=== PATIENT | female | born 1930 | race Caucasian/White ===

== ENCOUNTER 2019-11-24 22:30 | Emergency (ER) | payer MEDICARE, BC ==
--- NOTE | 2019-11-24 23:30 | EDM.PDOC ---
ED HPI GENERAL MEDICAL PROBLEM - General Chief Complaint: ENT Problem Stated Complaint: FELL Time Seen by Provider: 11/24/19 23:29 Source of Information: Reports: Patient History Limitations: Reports: No Limitations - History of Present Illness INITIAL COMMENTS - FREE TEXT/NARRATIVE: pt missed the first step and fell landing on her face several times. She did develop a heavy nose bleed. She has tenderness over the nose. She was not knocked out. She is not on blood thinners. Onset: Today, Sudden Duration: Hour(s): Location: Reports: Face Associated Symptoms: Reports: Other (pt landed on her knees but she does not have pain. ) forehead Pain Score (Numeric/FACES): 1 - Related Data Allergies Allergy/AdvReac Type Severity Reaction Status Date / Time ibuprofen Allergy Severe Swollen Verified 11/24/19 22:55 Tongue nitroglycerin Allergy Severe Hypotension Verified 11/24/19 22:55 amoxicillin Allergy Mild Rash Verified 11/24/19 22:55 walnut Allergy Swollen Verified 11/24/19 22:55 Tongue vasodilators Allergy Severe Hypotension Uncoded 11/24/19 22:55 Home Meds: Home Meds Albuterol [Ventolin HFA] 2 inh INH ASDIRECTED PRN 11/24/19 [History] Aspirin [Mitra Chewable] 81 mg PO BEDTIME 11/24/19 [History] Levothyroxine [Synthroid] 50 mcg PO DAILY 11/24/19 [History] Loratadine [Claritin] 10 mg PO DAILY PRN 11/24/19 [History] Potassium Chloride 10 meq PO DAILY 11/24/19 [History] Propylene Glycol/PEG 400/Pf [Systane 0.3-0.4% Eye Drop] 1 drop EYEBOTH TID 11/24/19 [History] hydroCHLOROthiazide [Hydrochlorothiazide] 25 mg PO DAILY 11/24/19 [History] Past Medical History HEENT History: Reports: Cataract, Impaired Vision, Other (See Below) Other HEENT History: glasses Respiratory History: Reports: Asthma [employer] History: Reports: Musculoskeletal History: Reports: Arthritis, Other (See Below) Other Musculoskeletal History: broken nose Neurological History: Reports: Head Trauma Endocrine/Metabolic History: Reports: Hypothyroidism Oncologic (Cancer) History: Reports: Basal Cell Carcinoma Dermatologic History: Reports: Other (See Below) Other Dermatologic History: basil cell carcinoma - Infectious Disease History Infectious Disease History: Reports: Chicken Pox, Measles, Mumps, Rubella - Past Surgical History HEENT Surgical History: Reports: Adenoidectomy, Cataract Surgery, Naso-Sinus Surgery, Tonsillectomy GI Surgical History: Reports: Appendectomy, Cholecystectomy Musculoskeletal Surgical History: Reports: Other (See Below) Other Musculoskeletal Surgeries/Procedures:: nose repair due to break Dermatological Surgical History: Reports: Plastic Surgical Reconstruction/Repair, Skin Biopsy Social & Family History - Tobacco Use Smoking Status *Q: Never Smoker - Caffeine Use Caffeine Use: Reports: Coffee - Recreational Drug Use Recreational Drug Use: No ED ROS ENT - Review of Systems Review Of Systems: See Below Constitutional: Reports: No Symptoms HEENT: Reports: Nosebleed, Other ( swelliver the nose. ) Respiratory: Reports: No Symptoms Cardiovascular: Reports: No Symptoms Endocrine: Reports: No Symptoms GI/Abdominal: Reports: No Symptoms : Reports: No Symptoms Musculoskeletal: Reports: No Symptoms Skin: Reports: No Symptoms ED EXAM, ENT - Physical Exam Exam: See Below Text/Narrative:: pt has swelling and tenderness over the bridge of the nose. She had had a nose bleed but that has stopped. Exam Limited By: No Limitations General Appearance: Alert, Mild Distress, Other (left pupil is chronicly larger because of surgery. ) Ears: Normal TMs Nose: Nasal Tenderness, Dried Blood, Other (pt has swelling over the nose. The bleeding appears to have stopped. ) Mouth/Throat: Normal Inspection Head: Other ( abrasions over the facial area. ) Neck: Normal Inspection Respiratory/Chest: No Respiratory Distress Cardiovascular: Regular Rate, Rhythm GI/Abdominal: Soft, Non-Tender (Female) Exam: Deferred Rectal (Female) Exam: Deferred Back: Normal Inspection Extremities: Other ( slight abrasion on both knees. ) Course - Vital Signs Last Recorded V/S: Last Vital Signs Temp 36.2 C 11/24/19 23:00 Pulse 76 11/24/19 23:00 Resp 16 11/24/19 23:00 BP 194/79 H 11/24/19 23:00 Pulse Ox 94 L 11/24/19 23:00 - Orders/Labs/Meds Orders: Active Orders 24 hr Category Date Time Status Nasal Bone Min 3V [CR] Stat Exams 11/24/19 23:28 Taken Sinus Less 3V [CR] Stat Exams 11/24/19 23:29 Taken - Re-Assessments/Exams Free Text/Narrative Re-Assessment/Exam: 11/25/19 00:23 xray of nasal area and sinues were obtained. She has a nasal fracture with minimal displacement, no other abnormalities noted. Departure - Departure Time of Disposition: 00:15 Disposition: Home, Self-Care 01 Condition: Fair Clinical Impression: Nasal fracture, Nosebleed - Discharge Information Referrals: PCP,None [Primary Care Provider] - Forms: ED Department Discharge Care Plan Goals: cool pack to the nasaal area, low activity , rtc if there should be heavy bleeding or any change in mentation. tylenol for discomfort. Sepsis Event Note (ED) - Evaluation Sepsis Screening Result: No Definite Risk - Focused Exam Vital Signs: Vital Signs Temp Pulse Resp BP Pulse Ox 11/24/19 23:00 36.2 C 76 16 194/79 H 94 L 11/24/19 22:50 36.2 C 76 16 194/79 H 94 L - My Orders Last 24 Hours: My Active Orders 11/24/19 23:28 Nasal Bone Min 3V [CR] Stat 11/24/19 23:29 Sinus Less 3V [CR] Stat - Assessment/Plan Last 24 Hours: My Active Orders 11/24/19 23:28 Nasal Bone Min 3V [CR] Stat 11/24/19 23:29 Sinus Less 3V [CR] Stat
--- NOTE | 2019-11-25 09:25 | CR ---
Sinus Less 3V, Nasal Bone Min 3V CLINICAL HISTORY: Fall, facial trauma FINDINGS: There is a fracture of the distal third of the nasal bones with slight downward angulation. There is rightward deviation of the nasal septum which is likely chronic. Paranasal sinuses are clear. Bony orbits appear intact IMPRESSION: Slightly angulated fracture nasal bones NASAL BONES: Findings: There is a slightly downward annulated fracture nasal bones likely acute. There is mild rightward deviation of the nasal septum which is likely chronic. Impression: Fracture nasal bones
== END 2019-11-25 00:33 | disposition home or self-care (01) ==
LOC: JP.ED 22:30
DX: S02.2XXA Fracture of nasal bones, initial encounter for closed fracture (principal); S00.81XA Abrasion of other part of head, initial encounter; S80.212A Abrasion, left knee, initial encounter; S80.211A Abrasion, right knee, initial encounter; J45.909 Unspecified asthma, uncomplicated; E03.9 Hypothyroidism, unspecified; Z88.6 Allergy status to analgesic agent; Z88.1 Allergy status to other antibiotic agents; Z88.8 Allergy status to other drugs, medicaments and biological substances; Z79.82 Long term (current) use of aspirin; Z91.018 Allergy to other foods; Z79.899 Other long term (current) drug therapy; Z90.49 Acquired absence of other specified parts of digestive tract; W10.9XXA Fall (on) (from) unspecified stairs and steps, initial encounter
CPT/HCPCS: 70160; 70160-26; 99282; 99283-25